=== PATIENT | male | born 1985 | race Caucasian/White ===

== ENCOUNTER 2016-11-12 15:18 | Emergency (ER) | payer OTHER ==
[2016-11-12 16:04] VITALS: TEMP 98.2
--- NOTE | 2016-11-12 17:36 | EDPHY ---
H & P Smoking Status: Current every day smoker Time Seen by Provider: 11/12/16 16:51 HPI/ROS: CHIEF COMPLAINT: mental health resources HISTORY OF PRESENT ILLNESS: 31-year-old male presents emergency department requesting mental health resources. Patient is from [place] and has been weak. He states that he is bipolar and needs his medications. Pt states that he takes 20mg of Abilify daily though has been out of this for 5 days. Patient denies suicidal ideations, homicidal ideations, auditory or visual hallucinations. He is here requesting resources and a place to sleep. REVIEW OF SYSTEMS: A comprehensive 10 point review of systems is otherwise negative aside from elements mentioned in the history of present illness. (Alesha Bella) Physical Exam: Physical Exam Gen: Alert and Oriented, NAD HEENT: PERRL, moist mucous membranes NECK: no meningismus CV: regular rate and regular rhythm PULM: CTAB, no wheezes ABDOMEN: soft, non tender to palpation, BS present BACK: No CVA tenderness NEURO: Neurologically grossly intact EXTREMITIES: normal appearing SKIN: Mild sunburn to bilateral arms PSYCH: answers questions appropriately, denies suicidal ideation, homicidal ideation, auditory and visual hallucinations. (Alesha Bella) Constitutional: Initial Vital Signs Temperature (C) 36.8 C 11/12/16 15:50 Heart Rate 96 11/12/16 15:50 Respiratory Rate 18 11/12/16 15:50 Blood Pressure 143/89 H 11/12/16 15:50 O2 Sat (%) 98 11/12/16 15:50 O2 Delivery Mode Room Air Allergies/Adverse Reactions: risperidone Allergy (Intermediate, Verified 11/12/16 16:01) muscle spasms Home Medications: Medication Instructions Recorded ARIPIPRAZOLE [Abilify 20mg] 20 mg PO DAILY #7 tab 11/12/16 ARIPIPRAZOLE [Abilify 30mg] 30 mg PO DAILY 11/12/16 MDM/Departure - MDM Medications Given: Discontinued Medications Aripiprazole (Abilify) 20 mg PO EDNOW ONE Stop: 11/12/16 17:39 Last Admin: 11/12/16 18:19 Dose: 20 mg ED Course/Re-evaluation: I did not see this patient while he was in the emergency department. However his care was discussed with the nurse practitioner while the patient was in the department. I agree with treatment plan and management (Boris Medina) - Depart Disposition: Home, Routine, Self-Care Clinical Impression: Medication refill Condition: Good Instructions: Medicine Refill (ED) Additional Instructions: You have been given a prescription for 7 days of abilify. Follow up with the mental health resources provided to you today. 1. Please follow-up with the mental health resources provided in the ED today. 2. [facility] does operate a 24/ psychiatric crisis unit located at [address] [place] [address]. The telephone number for the 24 hour crisis center is [phone]. 3. Please return to the ED if you are feeling suicidal, having thoughts of harming yourself/others or should you feel unsafe or have worsening symptoms. Prescriptions: ARIPIPRAZOLE [Abilify 20mg] 20 mg PO DAILY #7 tab Referrals: [facility],. [Clinic] - As per Instructions
[2016-11-12] MEDS ORDERED: ARIPiprazole 10 MG TAB PO ONE (17:38)
[2016-11-12 18:35] VITALS: BP 128/87; PULSE 91; RESP 16; O2SAT 97
== END 2016-11-12 18:34 | disposition home or self-care (01) ==
DX: F31.9 Bipolar disorder, unspecified (principal); Z76.0 Encounter for issue of repeat prescription; F17.200 Nicotine dependence, unspecified, uncomplicated